=== PATIENT | male | born 1960 | race Two or more races ===

== ENCOUNTER 2022-09-27 11:10 | Inpatient (IN) | payer OTHER, MEDICAID ==
[~2022-09-27] VITALS: Ht 157.5 cm; Wt 90.7 kg
[2022-09-27 12:16] LABS: Basophils # (auto) 0 10 ^3/uL (0-0.2); Basophils % (auto) 0.2 % (0.0-2.0); Eosinophils # (auto) 0.1 10 ^3/uL (0-0.8); Eosinophils % (auto) 1.6 % (0.0-7.0); Hematocrit 43.8 % (41.0-53.0); Lymphocytes # (auto) 1.5 10 ^3/uL (0.4-5.4); Lymphocytes % (auto) 17.9 % (10.0-50.0); Mean Corpuscular Hemoglobin 30.1 pg (28.0-32.0); Mean Corpuscular Hgb Conc. 34.3 g/dL (32.0-36.0); Mean Corpuscular Volume 87.6 fL (80.0-100.0); Monocytes # (auto) 0.4 10 ^3/uL (0-1.3); Monocytes % (auto) 4.5 % (0.0-12.0); Neutrophils # (auto) 6.3 10 ^3/uL (1.6-8.6); Neutrophils % (auto) 75.8 % (37.0-80.0); Nucleated Red Blood Cells % 0.2 %; Red Cell Distribution Width 13.3 % (11.8-14.3); White Blood Cell 8.3 10^3/uL (4.4-10.8)
[2022-09-27 12:33] LABS: Albumin 3.3 g/dL (3.4-5.0); Calcium 8.5 mg/dL (8.5-10.1); Potassium 4.2 mmol/L (3.5-5.1)
[2022-09-27 12:35] LABS: INR 0.92 (0.9-1.15); Partial Thromboplastin Time 25.3 sec (24.6-33.4)
[2022-09-27 12:37] LABS: BUN/Creatinine Ratio 12.7; Bilirubin, Total 0.5 mg/dL (0.2-1.0); Total Protein 6.8 g/dL (6.4-8.2)
[2022-09-27 13:47] LABS: Urine WBC None Seen /hpf (0 - 3)
[2022-09-27 13:58] LABS: Urine Bacteria NONE SEEN /hpf (None Seen); Urine Blood Negative /uL (Negative); Urine Specific Gravity 1.026 (1.001-1.035)
[2022-09-27] MEDS ORDERED: DEXTROSE (50%) 50ML SYRG IV PRN (18:15)
[2022-09-27] MEDS ORDERED: ACETAMINOPHEN 325 MG TAB PO PRN (18:30)
[2022-09-27] MEDS: LACTATED RINGER'S 1,000 ML IV SCH (21:41)
[2022-09-27] MEDS: HYDROcodone-ACET 5/325MG TAB PO PRN (23:53)
[2022-09-28] MEDS: ACCU-CHEK COMFORT CURVE STRIP VI SCH ×4 (00:11→18:04)
[2022-09-28] MEDS: InsuLIN REG 1unit/0.01ml Soln (100units/ml) SC SCH ×4 (00:22→18:03)
[2022-09-28] MEDS: LACTATED RINGER'S 1,000 ML IV SCH ×4 (04:44→15:30)
[2022-09-28] MEDS: HYDROcodone-ACET 5/325MG TAB PO PRN ×2 (04:44→21:27)
[2022-09-28 05:22] LABS: Basophils # (auto) 0 10 ^3/uL (0-0.2); Basophils % (auto) 0.2 % (0.0-2.0); Eosinophils # (auto) 0.2 10 ^3/uL (0-0.8); Hematocrit 41.7 % (41.0-53.0); Hemoglobin 14.3 g/dL (13.5-17.5); Lymphocytes # (auto) 2.4 10 ^3/uL (0.4-5.4); Lymphocytes % (auto) 24.6 % (10.0-50.0); Mean Corpuscular Hemoglobin 30.1 pg (28.0-32.0); Mean Corpuscular Hgb Conc. 34.3 g/dL (32.0-36.0); Mean Corpuscular Volume 87.8 fL (80.0-100.0); Monocytes # (auto) 0.8 10 ^3/uL (0-1.3); Monocytes % (auto) 8.7 % (0.0-12.0); Neutrophils # (auto) 6.2 10 ^3/uL (1.6-8.6); Neutrophils % (auto) 64.5 % (37.0-80.0); Nucleated Red Blood Cells % 0.2 %; Red Blood Cells 4.75 10^6/uL (4.5-5.90); Red Cell Distribution Width 13.2 % (11.8-14.3); White Blood Cell 9.6 10^3/uL (4.4-10.8)
[2022-09-28 05:41] LABS: Calcium 8.7 mg/dL (8.5-10.1); Potassium 4.1 mmol/L (3.5-5.1)
[2022-09-28 05:48] LABS: BUN/Creatinine Ratio 15.1; Bilirubin, Total 0.5 mg/dL (0.2-1.0); Total Protein 6.4 g/dL (6.4-8.2)
[2022-09-28] MEDS ORDERED: MIDAZOLAM HCL 2MG/2ML 2ml VIAL (1mg/ml) ONE (08:17)
[2022-09-28] MEDS ORDERED: LIDOCAINE 2% (LOCAL ANESTH.) PF 5ml SDV ONE (08:26)
[2022-09-28] MEDS ORDERED: DexAMETHasone SOD PHOS 10MG/1ML VIAL INJ ONE (08:26)
[2022-09-28] MEDS ORDERED: KETOROLAC TROMETH 30 MG/ML 1ML VIAL ONE (08:26)
[2022-09-28] MEDS ORDERED: GLYCOPYRROLATE 0.2 MG/ML 1ML VIAL ONE (08:26)
[2022-09-28] MEDS ORDERED: ONDANSETRON HCL 4 MG/2 ML VIAL ONE (08:26)
[2022-09-28] MEDS ORDERED: PROPOFOL 10 MG/ML 20 ML IV ONE (08:27)
[2022-09-28] MEDS ORDERED: ceFAZolin 1GM/50ML 100 ML IV ONE (08:36)
[2022-09-28] MEDS ORDERED: fentaNYL CITRATE 100 MCG/2 ML VL ONE (09:58)
[2022-09-28] MEDS: PANTOPRAZOLE 40 MG/10 ML VIAL INJ IV SCH (10:00)
[2022-09-28] MEDS ORDERED: BUPIVACAINE 0.25% INJ 50ML VIAL ONE (10:18)
[2022-09-28] MEDS ORDERED: HYDROmorphone HCL 2 MG/ML VL/or syr IV ONE (12:22)
[2022-09-28] MEDS ORDERED: HYDROmorphone HCL 2 MG/ML VL/or syr IV PRN ×3 (12:25→13:30)
[2022-09-28] MEDS ORDERED: LABETALOL HCL 5 MG/ML 4ML SYRINGE IV ONE ×2 (12:58→13:00)
[2022-09-28 13:00] VITALS: BP 156/93
[2022-09-28] MEDS ORDERED: NALOXONE HCL 0.4 MG/ML VIAL IV PRN (13:30)
[2022-09-28] MEDS ORDERED: ONDANSETRON HCL 4 MG/2 ML VIAL IV PRN (13:30)
[2022-09-28] MEDS ORDERED: FLUMAZENIL 0.1 MG/ML INJ 10ML MDV IV PRN (13:30)
[2022-09-28] MEDS ORDERED: fentaNYL CITRATE 100 MCG/2 ML VL IV PRN (13:30)
[2022-09-28] MEDS ORDERED: LABETALOL HCL 5 MG/ML 4ML SYRINGE IV PRN (13:30)
[2022-09-28] MEDS ORDERED: hydrALAZINE HCL 20 MG/ML VL IV PRN ×2 (13:30→14:30)
[2022-09-28] MEDS ORDERED: ePHEDrine SULFATE 50 MG/ML AMP IV PRN (13:30)
[2022-09-28 13:59] VITALS: BP 156/93
[2022-09-28] MEDS ORDERED: cloNIDine HCL 0.1 MG TAB PO PRN (14:30)
[2022-09-28] MEDS ORDERED: GLYB1.257 PO (15:14)
[2022-09-28] MEDS ORDERED: ASPI-325 PO (15:14)
[2022-09-28] MEDS ORDERED: DONE5TAB80 PO (15:14)
[2022-09-28] MEDS ORDERED: TAMS0.4C36 PO (15:14)
[2022-09-28] MEDS ORDERED: CYCL-611 PO (15:14)
[2022-09-28] MEDS ORDERED: HYDR-4611 (15:15)
[2022-09-28] MEDS: ceFAZolin 1GM/50ML 50 ML IV SCH ×2 (15:21→21:16)
[2022-09-28 17:19] VITALS: BP 173/82
[2022-09-28] MEDS: METOPROLOL TARTRATE 25 MG TAB PO SCH (21:16)
[2022-09-28 22:38] VITALS: BP 111/64
[2022-09-29] MEDS: ACCU-CHEK COMFORT CURVE STRIP VI SCH ×5 (00:35→21:15)
[2022-09-29] MEDS: InsuLIN REG 1unit/0.01ml Soln (100units/ml) SC SCH ×4 (00:35→17:38)
[2022-09-29 04:44] VITALS: BP 112/69
[2022-09-29] MEDS: ceFAZolin 1GM/50ML 50 ML IV SCH (05:19)
[2022-09-29] MEDS: LACTATED RINGER'S 1,000 ML IV SCH ×2 (05:21→18:10)
[2022-09-29 05:46] LABS: Basophils # (auto) 0 10 ^3/uL (0-0.2); Eosinophils # (auto) 0 10 ^3/uL (0-0.8); Hematocrit 39.9 % (41.0-53.0); Hemoglobin 13.9 g/dL (13.5-17.5); Lymphocytes # (auto) 0.9 10 ^3/uL (0.4-5.4); Mean Corpuscular Hemoglobin 30.1 pg (28.0-32.0); Mean Corpuscular Hgb Conc. 34.8 g/dL (32.0-36.0); Mean Corpuscular Volume 86.7 fL (80.0-100.0); Monocytes # (auto) 0.5 10 ^3/uL (0-1.3); Red Cell Distribution Width 13.4 % (11.8-14.3); White Blood Cell 15.4 10^3/uL (4.4-10.8)
[2022-09-29 06:12] LABS: BUN/Creatinine Ratio 19.6 (10.0-20.0); Calcium 8.8 mg/dL (8.5-10.1); Potassium 4.1 mmol/L (3.5-5.1)
[2022-09-29 09:11] VITALS: BP 118/72
[2022-09-29] MEDS: PANTOPRAZOLE 40 MG/10 ML VIAL INJ IV SCH (09:32)
[2022-09-29] MEDS: HYDROcodone-ACET 5/325MG TAB PO PRN ×2 (09:33→19:43)
[2022-09-29] MEDS: METOPROLOL TARTRATE 25 MG TAB PO SCH ×2 (09:34→21:15)
[2022-09-29] MEDS ORDERED: LISINOPRIL 20 MG TAB PO SCH (10:00)
[2022-09-29] MEDS ORDERED: glyBURIDE 5 MG TAB PO ONE (10:15)
[2022-09-29] MEDS ORDERED: DEXTROSE (50%) 50ML SYRG IV PRN (10:15)
[2022-09-29] MEDS: MORPHINE SULFATE INJ 2 MG/ml SYRG IV PRN ×2 (11:50→17:32)
[2022-09-29 12:36] VITALS: BP 133/79
[2022-09-29 16:59] VITALS: BP 119/79
[2022-09-29 22:00] VITALS: BP 154/90
[2022-09-29] MEDS ORDERED: InsuLIN REG 1unit/0.01ml Soln (100units/ml) SC SCH (22:00)
[2022-09-30 05:00] VITALS: BP 126/84
[2022-09-30 05:37] LABS: Basophils # (auto) 0 10 ^3/uL (0-0.2); Basophils % (auto) 0.2 % (0.0-2.0); Eosinophils # (auto) 0 10 ^3/uL (0-0.8); Eosinophils % (auto) 0.1 % (0.0-7.0); Hematocrit 38.1 % (41.0-53.0); Hemoglobin 13.1 g/dL (13.5-17.5); Lymphocytes # (auto) 2.6 10 ^3/uL (0.4-5.4); Lymphocytes % (auto) 19.1 % (10.0-50.0); Mean Corpuscular Hemoglobin 29.7 pg (28.0-32.0); Mean Corpuscular Hgb Conc. 34.3 g/dL (32.0-36.0); Mean Corpuscular Volume 86.6 fL (80.0-100.0); Monocytes # (auto) 0.6 10 ^3/uL (0-1.3); Monocytes % (auto) 4.9 % (0.0-12.0); Neutrophils # (auto) 10.1 10 ^3/uL (1.6-8.6); Neutrophils % (auto) 75.7 % (37.0-80.0); Red Cell Distribution Width 13.6 % (11.8-14.3); White Blood Cell 13.4 10^3/uL (4.4-10.8)
[2022-09-30 05:59] LABS: BUN/Creatinine Ratio 19.7 (10.0-20.0); Calcium 8.5 mg/dL (8.5-10.1); Potassium 3.8 mmol/L (3.5-5.1)
[2022-09-30] MEDS: InsuLIN REG 1unit/0.01ml Soln (100units/ml) SC SCH ×2 (06:11→12:56)
[2022-09-30] MEDS: ACCU-CHEK COMFORT CURVE STRIP VI SCH ×2 (06:11→12:06)
[2022-09-30] MEDS: HYDROcodone-ACET 5/325MG TAB PO PRN (06:12)
[2022-09-30] MEDS ORDERED: glyBURIDE 5 MG TAB PO SCH (07:00)
[2022-09-30 09:05] VITALS: BP 149/82
[2022-09-30] MEDS: METOPROLOL TARTRATE 25 MG TAB PO SCH (09:41)
[2022-09-30] MEDS ORDERED: PANTOPRAZOLE 40 MG TAB PO SCH (10:00)
[2022-09-30] MEDS ORDERED: HYDR-4072 PO (10:05)
[2022-09-30] MEDS ORDERED: CEPH-510 PO (10:10)
[2022-09-30 10:59] VITALS: BP 149/82
[2022-09-30 11:56] VITALS: BP 160/94
[2022-09-30] MEDS: MORPHINE SULFATE INJ 2 MG/ml SYRG IV PRN (12:04)
[2022-09-30 12:40] VITALS: BP 160/86
== END 2022-09-30 14:25 | disposition home or self-care (01) | DRG 494 ==
LOC: ER 11:10 → OVERFLOW 18:20 → CENTRAL 09-28 14:20
PROVIDERS: ADMIT Registered Nurse; ATTEND Internal Medicine
PROC: BQ1HZZZ Fluoroscopy of Left Ankle (ICD-10-PCS; 2022-09-28)
PROC: 0QSK04Z Reposition Left Fibula with Internal Fixation Device, Open Approach (ICD-10-PCS; principal; 2022-09-28 09:40)
DX: S82.842A Displaced bimalleolar fracture of left lower leg, initial encounter for closed fracture (principal); J43.9 Emphysema, unspecified; E66.9 Obesity, unspecified; E78.5 Hyperlipidemia, unspecified; E11.22 Type 2 diabetes mellitus with diabetic chronic kidney disease; Y93.01 Activity, walking, marching and hiking; Z20.822 Contact with and (suspected) exposure to COVID-19; I12.9 Hypertensive chronic kidney disease with stage 1 through stage 4 chronic kidney disease, or unspecified chronic kidney disease; N18.31 Chronic kidney disease, stage 3a; W10.8XXA Fall (on) (from) other stairs and steps, initial encounter; Y92.89 Other specified places as the place of occurrence of the external cause; Y99.8 Other external cause status; Z68.36 Body mass index [BMI] 36.0-36.9, adult
CPT/HCPCS: 36415; 71045; 73600; 73610; 76000; 80048; 80053; 81001; 82962; 83036; 85025; 85610; 85730; 86850; 86900; 86901; 87426; 93005; 97110; 97116; 97163; 97530; C9113; G0378; J0690; J1100; J1815; J1885; J2001; J2250; J2405; J2704; J3490